=== PATIENT | female | born 1970 | race Caucasian/White ===

== ENCOUNTER → 2016-07-18 | Outpatient (CLI) | payer BC | END | disposition home or self-care (01) | LOC: C.PAPS 10:54 | PROVIDERS: ATTEND Obstetrics & Gynecology | DX: Z01.419 Encounter for gynecological examination (general) (routine) without abnormal findings (principal) ==

== ENCOUNTER → 2017-07-17 | Outpatient (CLI) | payer OTHER ==
--- NOTE | 2017-07-18 07:57 | MAMMOGRAPHY REPORT ---
BILATERAL DIGITAL DIAGNOSTIC MAMMOGRAM TOMOSYNTHESIS WITH CAD AND TARGETED LEFT ULTRASOUND: 07/17/2017 CLINICAL HISTORY: 46-year-old woman who reports a palpable area and associated sharp pains that occur a few times a day every day since June 2017. She also reports other areas of pain in the upper out er quadrant of the left breast. TECHNIQUE: Bilateral breast tomosynthesis in addition to standard 2D mammography was performed. Curre nt study was also evaluated with a Computer Aided Detection (CAD) system. COMPARISON: Comparison is made to exams dated: 08/27/2014 mammogram and 01/05/2013 mammogram - [facility]. BREAST COMPOSITION: The tissue of both breasts is heterogeneously dense, which may obscure small mas ses. FINDINGS: There are minimal vascular calcifications and a few scattered benign punctate micro calcifi cations in the breasts. A triangular palpable marker overlies the lower inner quadrant of the left b reast, denoting the area of lump and pain pointed out by the patient. No obvious mass, developing as ymmetry, focal area of architectural distortion or new suspicious microcalcifications are seen bilate rally, with particular attention to the area of concern in the left breast. Further evaluation with ultrasound was performed. Targeted ultrasound was performed to the area of focal pain and lump pointed out by the patient, in t he 8:00 left breast, 5 cm from the nipple. Additional scanning was performed in the 7:00 and 9:00 le ft breast. And also in an area of pain in the left 2:00 and upper outer quadrant. A few scattered a nechoic benign cysts versus focal duct ectasia are seen, particularly in the 2:00 periareolar left br east and in the 7:00 periareolar left breast. There is no evidence of a suspicious solid or cystic m ass. The cysts are smaller than a centimeter and not directly in the areas pointed out by the patien t and are thought to be incidentally identified. IMPRESSION: ACR BI-RADS CATEGORY 2: BENIGN, TARGETED ULTRASOUND ACR BI-RADS CATEGORY 2: BENIGN 1. Stable bilateral mammograms. 2. There is no new suspicious mammographic or targeted sonographic findings in the lower inner upper outer left breast to explain the lumps and sharp pains described by the patient. Therefore, clinica l follow-up is recommended, as biopsy of a clinically suspicious mass should not be precluded by nega tive imaging. 3. Overall, there is no mammographic or targeted sonographic evidence of malignancy. Just a few sca ttered cysts and/or duct ectasia compatible with benign fibrocystic change. Recommend continued clin ical monitoring and follow-up, as biopsy of a clinically suspicious mass should not be precluded by n egative imaging. Otherwise recommend routine bilateral screening mammography in 1 year. Approximately 10% of breast cancers are not detected with mammography. A negative mammographic report should not delay biopsy if a clinically suggestive mass is present. Tahmina Huerta M.D. ay/:07/17/2017 11:46:23 Physicist [place]: Georgiana GRAYSON)(Bhavna), [facility] letter sent: Normal 1/2 BI-RADS Code: ACR BI-RADS Category 2: Benign Ultrasound BI-RADS: ACR BI-RADS Category 2: Benign
== END | disposition home or self-care (01) ==
LOC: C.MAMM 08:57
PROVIDERS: ATTEND Internal Medicine
DX: N63.24 Unspecified lump in the left breast, lower inner quadrant (principal); N63.21 Unspecified lump in the left breast, upper outer quadrant; R92.8 Other abnormal and inconclusive findings on diagnostic imaging of breast

== ENCOUNTER → 2017-08-05 | Outpatient (CLI) | payer OTHER | END | disposition home or self-care (01) | LOC: C.PAPS 16:02 | PROVIDERS: ATTEND Obstetrics & Gynecology | DX: Z12.4 Encounter for screening for malignant neoplasm of cervix (principal) ==